=== PATIENT | male | born 1985 | race Caucasian/White ===

== ENCOUNTER 2017-01-02 06:38 | Observation (INO) | payer OTHER ==
[~2017-01-02] VITALS: Ht 175.3 cm; Wt 114.2 kg
[~2017-01-02 06:38] MED LIST: ADVIL200 M1 PO; BACTRIM,SEPT1 TABLET PO; PREDNISONE10 MG PO; TYLENOL EXTRA500 MG PO
[2017-01-02 07:38] LABS: EOSINOPHIL (%) 0.2 % (0-5); HEMATOCRIT 44.9 % (38.0-50.0); IMMATURE GRANULOCYTE (%) 0.3 % (0.0-0.7); IMMATURE GRANULOCYTE COUNT 0.5 K/uL; LYMPHOCYTE COUNT 1.3 K/uL (1.0-2.8); MCH 27.7 PG (29.0-34.0); MCHC 33.4 G/DL (30.0-36.0); MEAN PLAT.VOLUME 10.8 uM^3 (9.0-12.4); MONOCYTE COUNT 0.7 K/uL (0-0.8); NEUTROPHIL (%) 88.6 % (45-76); NEUTROPHIL COUNT 16.4 K/uL (1.8-6.4); PLATELET COUNT 200 K/uL (156-360); RBC DIS.WIDTH-CV 13.1 % (11.8-14.6); RBC DIS.WIDTH-SD 39.5 % (39-53); RED BLOOD COUNT 5.41 M/uL (4.00-5.50); WHITE BLOOD COUNT 18.5 K/uL (4.1-10.2)
[2017-01-02 08:29] LABS: ADD MIUA? YES; BILIRUBIN NEGATIVE; BLOOD TRACE; COLOR YELLOW ((YELLOW)); GLUCOSE (STRIP) >=1000; KETONES NEGATIVE; LEUKOCYTES NEGATIVE; NITRITE NEGATIVE; PH, URINE 5.5 (5-8); PROTEIN (STRIP) NEGATIVE; SPECIFIC GRAVITY 1.027 (1.000-1.030); UROBILINOGEN 0.2 MG/DL (0.2-1.0)
[2017-01-02 08:43] LABS: ALKALINE PHOSPHATASE 92 IU/L (3-129); ANION GAP 11 MEQ/L (2-14); CHLORIDE 101 MEQ/L (99-109); DIRECT BILIRUBIN 0.1 mg/dL (0.0-0.3); GFR ESTIMATE (CALCULATED) > 59 mL/min/; GLUCOSE 145 mg/dL (70-99); SALICYLATE < 3.0 MG/DL (15-30); SAMPLE HEMOLYSIS CHECK 1; SAMPLE ICTERIC CHECK 0; SAMPLE LIPEMIA CHECK 0; SERUM ETHYL ALCOHOL < 10 mg/dL; SODIUM 137 MEQ/L (136-147); TOTAL BILIRUBIN 0.4 MG/DL (0.0-1.0); UREA NITROGEN (BUN) 20 mg/dL (9-23)
[2017-01-02 08:44] LABS: POTASSIUM 4.2 MEQ/L (3.7-5.4)
[2017-01-02 08:51] LABS: BACTERIA RARE /HPF; EPITHELIAL CELLS RARE /HPF; HYALINE CASTS 15-20 /LPF; MUCUS TRACE /LPF; RED BLOOD CELLS 0-5 /HPF (0-5); WHITE BLOOD CELLS 0-5 /HPF (0-5)
[2017-01-02 08:53] LABS: ADD MEDTOX COMMENT Y; AMPHETAMINE NEGATIVE (500 ng/mL); BARBITURATES NEGATIVE (200 ng/mL); BENZODIAZEPINES NEGATIVE (150 ng/mL); COCAINE NEGATIVE (150 ng/mL); INTERNAL CONTROLS VALID? YES; METHADONE NEGATIVE (200 ng/mL); METHAMPHETAMINE NEGATIVE (500 ng/mL); OPIATES (MORPHINE) PRESUMPTIVE POSITIVE (100 ng/mL); OXYCODONE NEGATIVE (100 ng/mL); PHENCYCLIDINE NEGATIVE (25 ng/mL); PROPOXYPHENE NEGATIVE (300 ng/mL); THC CANNABINOIDS NEGATIVE (50 ng/mL); TRICYCLIC ANTIDEPRESSANTS NEGATIVE (300 ng/mL)
[2017-01-02] MEDS ORDERED: VENTOLIN HFA18 GM IH (11:57)
[2017-01-02] MEDS ORDERED: BENADRYL25 MG PO (11:58)
[2017-01-02] MEDS ORDERED: PERCOCET 10/1 TABLET PO (12:02)
[2017-01-02 14:03] LABS: Estimated Average Glucose 108 mg/dL (70-123); HEMOGLOBIN A1c (GLYCOHEMOGLOB) 5.4 % HGB (Below 5.7)
[2017-01-02 14:29] VITALS: BP 113/68
== END 2017-01-02 14:30 | disposition home or self-care (01) ==
LOC: EME 06:38 → EDOF 11:57
PROVIDERS: Emergency Medicine; Internal Medicine
DX: T40.2X4A Poisoning by other opioids, undetermined, initial encounter (principal); F17.200 Nicotine dependence, unspecified, uncomplicated; R81 Glycosuria; D72.829 Elevated white blood cell count, unspecified
CPT/HCPCS: 71010; 80048; 80076; 81003; 83036; 84999; 85025; 85027; 99202; 99281; 99285; G0378; G0480; J2310; J7030; S0028